=== PATIENT | male | born 1965 | race Caucasian/White ===

== ENCOUNTER 2019-06-29 18:29 | Emergency (ER) | payer OTHER ==
[~2019-06-29] VITALS: Ht 177.8 cm; Wt 93.4 kg
[2019-06-29 19:20] VITALS: BP 125/93
== END 2019-06-30 00:01 | disposition home or self-care (01) ==
LOC: ER 18:39
DX: M79.661 Pain in right lower leg (principal); Y93.01 Activity, walking, marching and hiking; X58.XXXA Exposure to other specified factors, initial encounter; Y99.0 Civilian activity done for income or pay; Y92.89 Other specified places as the place of occurrence of the external cause
CPT/HCPCS: 73590